=== PATIENT | male | born 1990 | race Two or more races ===

== ENCOUNTER 2018-04-29 21:24 | Emergency (ER) | payer MEDICAID ==
[2018-04-29] MEDS ORDERED: DIAZEPAM INJ 10 MG/2 ML DISP.SYRIN IM ONE (23:01)
--- NOTE | 2018-04-29 23:04 | ER Document Report ---
HPI - HPI Patient complains to provider of: upper back pain Time Seen by Provider: 04/29/18 22:51 Pain Level: 4 Context: Patient is a 27-year-old male that comes to the emergency department for chief complaint of upper back pain. He states there is a "knot" in his right upper back, states she can feel it and it is very tender, but it has been worsening over the past 2-3 days. 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 He denies any numbness, injury, fever, chest pain, shortness of breath, or history of IV drug abuse. He takes no daily medications. Past Medical History - General Information source: Patient - Social History Smoking Status: Never Smoker Frequency of alcohol use: None Drug Abuse: None Lives with: Family Family History: Reviewed & Not Pertinent - Medical History Medical History: Negative Surgical Hx: Negative - Immunizations Immunizations up to date: Yes Hx Diphtheria, Pertussis, Tetanus Vaccination: Yes Vertical Provider Document - CONSTITUTIONAL General Appearance: WD/WN - Patient is not distressed but he moves stiffly and gingerly - INFECTION CONTROL TRAVEL OUTSIDE OF THE [place] IN LAST 30 DAYS: No - HEENT HEENT: Atraumatic, Normal ENT Exam, Normocephalic - NECK Neck: Normal Inspection - RESPIRATORY Respiratory: Breath Sounds Normal, No Respiratory Distress - CARDIOVASCULAR Cardiovascular: Regular Rate, Regular Rhythm - GI/ABDOMEN Gastrointestinal: Abdomen Soft, Abdomen Non-Tender - BACK Back: negative: Normal Inspection - Along the right paracervical musculature and the right trapezius muscle there is a very big knot of muscle spasm which is very tender to palpation. Pain with range of motion mainly of the right arm/shoulder although range of motion is nearly intact. no midline tenderness, no saddle anesthesia, no signs of trauma. Normal upper and lower extremity range of motion, normal strength, normal distal neurovascular exam. - MUSCULOSKELETAL/EXTREMETIES Musculoskeletal/Extremeties: MAEW, Non-Tender - NEURO Level of Consciousness: Awake, Alert, Appropriate - DERM Integumentary: Warm, Dry, No Rash Course - Re-evaluation Re-evalutation: Patient has an easily palpable very obvious muscle spasm with no surrounding erythema, no induration or fluctuance, no midline tenderness, unremarkable back exam otherwise. Because of the extent of the muscle spasm he will be treated with diazepam as a muscle relaxer, anti-inflammatories, provided with work release. Discussed expectations, follow-up, and strict return precautions. Patient states understanding and agreement. - Vital Signs Vital signs: Temp Pulse Resp BP Pulse Ox 99.4 F 80 18 154/77 H 97 04/29/18 22:02 04/29/18 22:02 04/29/18 22:02 04/29/18 22:02 04/29/18 22:02 Discharge - Discharge Clinical Impression: Muscle spasm, Upper back pain Condition: Stable Disposition: HOME, SELF-CARE Additional Instructions: Your evaluation is consistent with a muscle spasm in your paracervical and trapezius muscles on the right side. Apply heat to the area, take anti-inflammatory, he can massage the area, do gentle stretches, take the medication prescribed as muscle relaxer using precautions. Follow-up with primary care. Return to the emergency department for any concerning or worsening symptoms including numbness, severe worsening pain, difficulty breathing, chest pain, fever, or any other concerning symptoms. Prescriptions: Diazepam [Valium 5 mg Tablet] 1 - 2 tab PO TID PRN #12 tablet PRN Reason: Naproxen 500 mg PO BID PRN #20 tablet PRN Reason: Forms: Return to Work
[2018-04-29 23:20] VITALS: BP 117/60
== END 2018-04-29 23:30 | disposition home or self-care (01) ==
LOC: ER 21:24
DX: M62.830 Muscle spasm of back (principal); M54.89 Other dorsalgia
CPT/HCPCS: 99283; 96372; J3360